=== PATIENT | male | born 1960 | race Asian ===

== ENCOUNTER 2017-03-08 08:47 | Emergency (ER) | payer OTHER ==
[~2017-03-08] VITALS: Ht 160 cm; Wt 59.1 kg
[2017-03-08 10:58] VITALS: BP 138/87
== END 2017-03-08 11:03 | disposition home or self-care (01) ==
LOC: EMS 08:50
DX: H05.221 Edema of right orbit (principal); H02.841 Edema of right upper eyelid; H02.842 Edema of right lower eyelid; H57.8 Other specified disorders of eye and adnexa
CPT/HCPCS: 99283

== ENCOUNTER 2022-11-03 11:00 | Emergency (ER) | payer OTHER ==
[~2022-11-03] VITALS: Ht 152.4 cm; Wt 72.7 kg
[2022-11-03 11:08] VITALS: TEMP 98
[2022-11-03 12:06] VITALS: BP 142/79; PULSE 86; RESP 18
[2022-11-03] MEDS ORDERED: RABIES VACCINE, HUMAN DIPLOID/PF 2.5 UNITS/ML VIAL IM. ONE (12:30)
[2022-11-03] MEDS ORDERED: RABIES IMMUNE GLOBULIN/PF 150 UNIT/ML 10 ML VIAL IM. ONE (12:30)
[2022-11-03] MEDS ORDERED: PERTUSS(ACELL),DIPH,TET VAC/PF 0.5 ML SYRINGE IM. ONE (12:30)
== END 2022-11-03 13:57 | disposition home or self-care (01) ==
LOC: EMS 11:00
DX: S91.154A Open bite of right lesser toe(s) without damage to nail, initial encounter (principal); F17.210 Nicotine dependence, cigarettes, uncomplicated; Z29.14 Encounter for prophylactic rabies immune globulin; W53.11XA Bitten by rat, initial encounter; Y93.89 Activity, other specified; Y92.89 Other specified places as the place of occurrence of the external cause; Y99.8 Other external cause status
CPT/HCPCS: 90375; 90471; 90472; 90675; 90715; 96372; 99284

== ENCOUNTER 2022-11-05 13:12 | Emergency (ER) | payer OTHER ==
[~2022-11-05] VITALS: Ht 160 cm; Wt 72.7 kg
[2022-11-05 13:17] VITALS: TEMP 100.1
[2022-11-05] MEDS ORDERED: RABIES VACCINE, HUMAN DIPLOID/PF 2.5 UNITS/ML VIAL IM. ONE (14:30)
[2022-11-05 15:55] VITALS: BP 141/72; PULSE 97; RESP 18
== END 2022-11-05 16:28 | disposition home or self-care (01) ==
LOC: EMS 13:32
DX: Z20.3 Contact with and (suspected) exposure to rabies (principal)
CPT/HCPCS: 90471; 90675; 99281

== ENCOUNTER 2022-11-10 11:21 | Emergency (ER) | payer OTHER ==
[2022-11-10] MEDS ORDERED: RABIES VACCINE, HUMAN DIPLOID/PF 2.5 UNITS/ML VIAL IM. ONE (12:30)
[2022-11-10 13:22] VITALS: BP 116/67; PULSE 76; RESP 16; TEMP 97.5
== END 2022-11-10 13:26 | disposition home or self-care (01) ==
LOC: EMS 11:21
DX: Z29.14 Encounter for prophylactic rabies immune globulin (principal); F17.210 Nicotine dependence, cigarettes, uncomplicated
CPT/HCPCS: 90471; 90675; 99281

== ENCOUNTER 2022-11-16 10:55 | Emergency (ER) | payer OTHER ==
[~2022-11-16] VITALS: Ht 160 cm; Wt 63.6 kg
[2022-11-16 10:56] VITALS: BP 132/72; PULSE 90; RESP 16; TEMP 98.4
[2022-11-16] MEDS ORDERED: RABIES VACCINE, HUMAN DIPLOID/PF 2.5 UNITS/ML VIAL IM. ONE (11:30)
== END 2022-11-16 11:33 | disposition home or self-care (01) ==
LOC: EMS 11:03
DX: T14.8XXD Other injury of unspecified body region, subsequent encounter (principal); F17.210 Nicotine dependence, cigarettes, uncomplicated; Z23 Encounter for immunization; W53.11XD Bitten by rat, subsequent encounter
CPT/HCPCS: 90471; 90675; 99281